=== PATIENT | male | born 2000 | race Hispanic/Latino ===

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

== ENCOUNTER 2020-09-16 17:23 | Emergency (ER) | payer OTHER ==
[~2020-09-16 17:23] MED LIST: Iopamidol-370 76% 500 ML 1 ML ONE
--- NOTE | 2020-09-16 18:30 | RAD ---
TWO VIEWS OF THE LEFT HIP: 09/16/20 COMPARISON: None. HISTORY: Left hip injury with pain. FINDINGS: Two views of the left hip shows no evidence of acute fracture or dislocation. No degenerative changes are seen. The bones of the pelvis are unremarkable. IMPRESSION: No evidence of acute osseous abnormality. POS: EAA
[2020-09-16] MEDS ORDERED: Morphine 4 MG/ML VIAL ONE (18:35)
[2020-09-16] MEDS ORDERED: Ondansetron PF 4 MG/2 ML Vial ONE (18:35)
--- NOTE | 2020-09-16 20:10 | CT ---
CT OF THE FACE WITHOUT CONTRAST: 09/16/20 COMPARISON: None. HISTORY: Bucked off horse with facial trauma. TECHNIQUE: Multiple contiguous axial images were obtained in a CT of the face without contrast. Sagittal and cor onal reformats were performed. FINDINGS: Mild facial soft tissue swelling is seen. The globes and retrobulbar soft tissues are unremarkable. No facial fractures are identified. There is a small amount of fluid in some of the anterior right et hmoid air cells. The other paranasal sinuses are well aerated. The mastoid air cells are well aerated . IMPRESSION: No evidence of facial fracture. POS: EAA
--- NOTE | 2020-09-16 20:13 | CT ---
CT OF THE BRAIN WITHOUT CONTRAST: 09/16/20 HISTORY: Bucked off a horse with head trauma. TECHNIQUE: Multiple contiguous axial images were obtained in a CT of the brain without contrast. FINDINGS: The brain is normal in morphology and attenuation without focal lesions or confluent areas of infarct ion. There is no evidence of hydrocephalus, intracranial hemorrhage or extra-axial fluid collection. The calvarium and overlying soft tissues are unremarkable. The visualized paranasal sinuses and masto id air cells are well aerated. IMPRESSION: No evidence of acute intracranial abnormality. POS: JANEENA
--- NOTE | 2020-09-16 20:31 | CT ---
CT OF THE CERVICAL SPINE WITHOUT CONTRAST: 09/16/20 COMPARISON: None. HISTORY: bucked off a horse with head trauma and neck pain. TECHNIQUE: Multiple contiguous axial images were obtained in a CT of the cervical spine without contrast. Sagitt al and coronal reformats were performed. FINDINGS: The vertebral bodies and intervertebral discs demonstrate normal height and alignment without fractur e or subluxation. No degenerative changes are seen. No prevertebral soft tissue swelling is seen. The posterior facets are well aligned. Normal alignment of the skull base with the cervical spine is seen. The lung apices are unremarkable. No cervical adenopathy is appreciated. IMPRESSION: No evidence of acute osseous abnormality of the cervical spine. POS: EAA
[2020-09-16 20:37] LABS: #Eosinphils 0.2 thou/uL (0.0-0.7); #Lymphocytes 2.1 thou/uL (1.20-3.40); #Neutrophils 13.9 thou/uL (1.40-6.50); %Basophils 0.2 % (0.0-1.0); %Eosinophils 1.1 % (0.0-10.0); %Lymphocytes 12.3 % (21.0-51.0); %Monocytes 5.5 % (0.0-10.0); %Neutrophils 80.9 % (42.0-75.0); Hemoglobin 16.9 g/dL (14.0-18.0); Mean Corpuscular HGB CONC 33.6 g/dL (32.0-36.0); Mean Corpuscular Hemoglobin 31.5 pg (27.0-31.0); Mean Corpuscular Volume 93.9 fL (78.0-98.0); Mean Platelet Volume 9.7 fL (7.4-10.4); Platelet Count 172 thou/uL (130-400); RBC Distribution Width 11.8 % (11.5-14.5); Red Blood Cell (RBC) Count 5.38 mill/uL (4.70-6.10); White Blood Cell (WBC) Count 17.2 thou/uL (4.8-10.8)
--- NOTE | 2020-09-16 21:07 | CT ---
CT CHEST WITH CONTRAST CT ABDOMEN AND PELVIS WITH CONTRAST CT THORACIC AND LUMBOSACRAL SPINE WITH CONTRAST: Date: 09/16/2020 HISTORY: Bucked off horse with chest pain, abdominal pain, and back pain. TECHNIQUE: 1. Multiple contiguous axial images were obtained in a CT of the chest with contrast. Sagittal and c oronal reformats were performed. 2. Multiple contiguous axial images were obtained in a CT of the abdomen and pelvis with contrast. S agittal and coronal reformats were performed. 3. CTs of thoracic and lumbosacral spines performed. Sagittal and coronal reformats were created bas ed off images obtained in the chest, abdomen, and pelvic CTs. FINDINGS: CT CHEST: There is a small nodular opacity in the left lung base measuring 5.0 mm in size. No other pulmonary n odules are seen. No pneumothorax or pleural effusions are seen. The heart is normal in size without focal cardiac abnormality. No hilar or mediastinal lymphadenopath y seen. A small amount of soft tissue density in the anterior mediastinum likely represents residual thymus. The chest wall soft tissues and bones of the thorax are unremarkable. CT ABDOMEN/PELVIS: The liver, gallbladder, kidneys, adrenal glands, spleen, and pancreas are unremarkable. No free air, free fluid, or stranding changes are seen in the abdomen or pelvis. The large and small bowel are unremarkable. The appendix is normal in caliber with an appendicolith a t the base of the appendix. No abdominal or pelvic lymphadenopathy are seen. There is soft tissue swelling in the left gluteal fat. The underlying pelvic bones are unremarkable. CT THORACIC AND LUMBOSACRAL SPINE: The vertebral bodies and intervertebral discs demonstrate normal height and alignment without fractur e or subluxation. No degenerative changes are seen. IMPRESSION: 1. No evidence of acute intrathoracic abnormality. 2. Tiny nodular opacity in the left lung base. A follow-up CT in 1 year is recommended to ensure sta bility. 3. No evidence of acute intra-abdominal/pelvic abnormality. 4. No evidence of acute osseous abnormality of the thoracic or lumbosacral spine. POS: EAA
[2020-09-16 21:12] LABS: AST (SGOT) 32 U/L (5-34); Albumin 3.8 g/dL (3.5-5.0); Alkaline Phosphatase 81 U/L (40-110); Anion Gap 20 mmol/L (10-20); BUN (Urea Nitrogen) 11 mg/dL (8.9-20.6); Bilirubin, Total 0.4 mg/dL (0.2-1.2); Calc. Creatinine Clearance 0 mL/min (70-130); Calcium 8.7 mg/dL (7.8-10.44); Carbon Dioxide 14 mmol/L (22-29); Chloride 105 mmol/L (98-107); Estimated GFR-MDRD Greater than 90; Globulin 3.8 g/dL (2.4-3.5); Glucose 88 mg/dL (70-105); Lipase 9 U/L (8-78); Potassium 4.7 mmol/L (3.5-5.1); Protein, Total 7.6 g/dL (6.0-8.3); Sodium 134 mmol/L (136-145)
[2020-09-16 21:17] LABS: Clarity Clear (Clear); Leukocyte Negative Leu/uL (Negative); Specific Gravity, Urine 1.041 (1.002-1.036); pH, Urine 6.5 (5.0-9.0)
[2020-09-16 21:18] LABS: Bilirubin Negative (Negative); Blood, Urine Negative (Negative); Glucose, Urine (Dipstick) Normal (Negative); Ketone, Urine Negative (Negative); Nitrite Negative (Negative); Protein, Urine (Dipstick) 10 mg/dL (Neg-Trace); Urobilinogen Normal mg/dL (Less than 2)
== END 2020-09-16 20:58 | disposition home or self-care (01) ==
LOC: ERS 17:23
DX: S06.9X1A Unspecified intracranial injury with loss of consciousness of 30 minutes or less, initial encounter (principal); S16.1XXA Strain of muscle, fascia and tendon at neck level, initial encounter; S70.02XA Contusion of left hip, initial encounter; V80.010A Animal-rider injured by fall from or being thrown from horse in noncollision accident, initial encounter
CPT/HCPCS: 36415; 70450; 70486; 71260; 72125; 74177; 80053; 81003; 83690; 85025; 96374; 96375; J2270; J2405; Q9967